=== PATIENT | male | born 1995 | race American Indian/Alaskan Native ===

== ENCOUNTER 2016-04-29 12:41 | Emergency (ER) | payer BC ==
[2016-04-29 13:00] VITALS: TEMP 98.5; O2SAT 99
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
[2016-04-29 14:43] LABS: RBC URINE 6 /hpf (0-3); URINE BILIRUBIN NEGATIVE (NEGATIVE); URINE BLOOD NEGATIVE (NEGATIVE); URINE COLOR YELLOW (YELLOW); URINE GLUCOSE (UA) NEG (Normal); URINE KETONE NEGATIVE (NEGATIVE); URINE LEUKOCYTE ESTERASE NEG Leu/uL (Negative); URINE PROTEIN NEGATIVE (NEGATIVE); URINE UROBILINOGEN 0.2-1.0 mg/dL (0.2-1.0); WBC URINE < 1 /hpf (0-5)
--- NOTE | 2016-04-29 16:55 | US ---
HISTORY: Left testicular pain, Duration of symptoms: Unknown TECHNIQUE: Realtime sonography through the scrotum with color and doppler flow. COMPARISON: 12/18/2014. FINDINGS: RIGHT TESTICLE: Measures 4.7 x 1.9 x 3.1 cm. Normal echotexture and flow. RIGHT EPIDIDYMIS: Epididymal head measures 0.95 x 1.1 cm. Grossly unremarkable appearance with normal flow. LEFT TESTICLE: Measures 3.9 x 1.7 x 2.7 cm. Normal echotexture and flow. LEFT EPIDIDYMIS: Epididymal head measures 1.07 cm. Grossly unremarkable appearance with normal flow.Incidental finding(s): 2 mm cyst in the epididymal head a finding not seen previously. HYDROCELE: Small, bilateral. VARICOCELE: None. OTHER FINDINGS: None. IMPRESSION: No acute findings related to/accounting for the clinical presentation. Negative study for epididymitis, orchitis, torsion. No significant interval change compared to the prior examination(s).
--- NOTE | 2016-04-29 17:28 | CT ---
PROCEDURE: CT Abdomen and Pelvis without Oral or IV contrast. HISTORY: Left testicular pain COMPARISON: None available. TECHNIQUE: Contiguous axial images of the abdomen and pelvis. No oral or IV contrast administered. Coronal and Sagittal reformats generated and reviewed. Radiation dose: Total exam DLP = 525.66 MGy-cm. FINDINGS: There is limited evaluation of the solid organs without the administration of IV contrast. LOWER THORAX: No visible consolidation, pleural effusion, or pneumothorax. LIVER: Unremarkable unenhanced appearance. GALLBLADDER AND BILE DUCTS: Unremarkable unenhanced appearance. PANCREAS: Unremarkable unenhanced appearance. SPLEEN: Unremarkable unenhanced appearance. ADRENALS: Unremarkable unenhanced appearance. KIDNEYS AND URETERS: No hydronephrosis or obstructing renal calculus. BLADDER: The urinary bladder appears unremarkable. REPRODUCTIVE: The prostate gland measures approximately 3.2 x 4.5 cm. APPENDIX: The appendix appears within normal limits of caliber. No secondary signs of acute appendicitis. BOWEL: The stomach is nondistended. Lack of oral contrast limits evaluation for bowel pathology. The bowel loops appear within normal limits of caliber without evidence of intestinal obstruction. PERITONEUM: Small pelvic free fluid, unusual in a young male patient. No definite free air. LYMPH NODES: Sub cm inguinal lymph nodes, nonspecific. No bulky lymphadenopathy identified. VASCULATURE: No aortic aneurysm. BONES: No acute osseous abnormality is detected. OTHER FINDINGS: None. IMPRESSION: Small pelvic free fluid, unusual in a young male patient.
[2016-04-29 19:28] VITALS: BP 136/79; PULSE 72; RESP 19
== END 2016-04-29 19:27 | disposition home or self-care (01) ==
LOC: H.ER 12:41
DX: N50.812 Left testicular pain (principal)

== ENCOUNTER 2016-07-04 17:19 | Emergency (ER) | payer SELFPAY ==
[2016-07-04] MEDS ORDERED: TDAP Vaccine 0.5 mL Syr IM ONE (17:36)
[2016-07-04] MEDS ORDERED: Absorbable Gelatin Sponge Size 12-7 TP STA (17:36)
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
[2016-07-04 17:44] VITALS: BP 125/80; PULSE 81; RESP 16; TEMP 98.2; O2SAT 100
[2016-07-04] MEDS ORDERED: Lidocaine 1% Inj (20ml) ONE (18:17)
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
== END 2016-07-04 19:30 | disposition home or self-care (01) ==
LOC: H.ER 17:19
DX: S61.411A Laceration without foreign body of right hand, initial encounter (principal); W25.XXXA Contact with sharp glass, initial encounter; Y92.89 Other specified places as the place of occurrence of the external cause; Z88.0 Allergy status to penicillin